=== PATIENT | male | born 1980 | race Caucasian/White ===

== ENCOUNTER → 2020-01-06 | Outpatient (CLI) | payer OTHER ==
[~2020-01-06] MED LIST: AUGMENTIN 875875 M1 PO; COUMADIN 5 MG TA5 M1 PO; LOVENOX SQ; MULTIPLE VITAM1 EAC3 PO; NOHOMEMEDICATIONS; VICODIN PO; ZOSYN 4.5 GRAM4.5 GM IV; ZYRTEC PO
== END ==
LOC: M.ULTRA 15:00
DX: N43.3 Hydrocele, unspecified (principal); N50.89 Other specified disorders of the male genital organs; R10.2 Pelvic and perineal pain

== ENCOUNTER → 2020-01-07 | Outpatient (CLI) | payer OTHER | LOC: M.ULTRA 07:55 | DX: N50.819 Testicular pain, unspecified (principal); R10.32 Left lower quadrant pain; N50.89 Other specified disorders of the male genital organs; R10.2 Pelvic and perineal pain ==

== ENCOUNTER 2020-01-27 05:16 | Emergency (ER) | payer OTHER ==
[~2020-01-27] VITALS: Ht 172.7 cm; Wt 94.1 kg
[2020-01-27] MEDS ORDERED: MULTIVITAMINS1 EAC7 PO (05:32)
[2020-01-27 05:56] LABS: URINE BILIRUBIN NEGATIVE (Negative); URINE BLOOD NEGATIVE (Negative); URINE CLARITY CLEAR; URINE COLOR YELLOW; URINE GLUCOSE-RANDOM NEGATIVE (Negative); URINE KETONES NEGATIVE (Negative); URINE LEUKOCYTES-REFLEX NEGATIVE (Negative); URINE NITRITE-REFLEX NEGATIVE (Negative); URINE PROTEIN NEGATIVE (Negative); URINE UROBILINOGEN 0.2 E.U./dl (0.2-1.0)
[2020-01-27 06:13] LABS: ABSOLUTE BASOPHILS 0.1 thou/uL (0.0-0.2); ABSOLUTE EOSINOPHILS 0.2 thou/uL (0.0-0.7); ABSOLUTE LYMPHOCYTES 1.8 thou/uL (0.8-5.3); ABSOLUTE MONOCYTES 0.6 thou/uL (0.0-1.2); ABSOLUTE NEUTROPHILS 3.2 thou/uL (1.6-8.1); BASOPHILS 1.1 %; HEMATOCRIT 50.1 % (42.0-52.0); HEMOGLOBIN 16.9 gm/dL (14.0-18.0); LYMPHOCYTES 31.1 %; MCH 29.5 pg (26.0-34.0); MCHC 33.8 g/dL (28.0-37.0); MCV 87.4 fL (80.0-100.0); MPV 7.5 fl. (7.2-11.1); NUCLEATED RBCS 0 /100WBC; PLATELET COUNT* 258 thou/uL (150-400); POLYS 53.8 %; RBC 5.73 mil/uL (4.50-6.00); RDW-CV 13.2 % (10.5-14.5); WBC 5.9 thou/uL (4.0-11.0)
[2020-01-27 06:31] LABS: CALCIUM 8.4 mg/dL (8.5-10.1); CREATININE 1.2 mg/dL (0.6-1.3); POTASSIUM 4.1 mmol/L (3.5-5.1)
[2020-01-27 06:36] LABS: ALBUMIN 3.8 g/dL (3.4-5.0); TOTAL BILIRUBIN 0.3 mg/dL (<0.1-1.0); TOTAL PROTEIN 7.7 g/dL (6.4-8.2)
[2020-01-27] MEDS ORDERED: ZOFRAN ODT4 MG DISSOLVE (08:06)
[2020-01-27] MEDS ORDERED: BENTYL 20 MG TA20 M1 PO (08:06)
[2020-01-27] MEDS ORDERED: NORCO 5-325 TA1 EAC1 PO (08:06)
[2020-01-27 08:15] VITALS: BP 121/88
== END 2020-01-27 08:16 | disposition home or self-care (01) ==
LOC: M.ERS 05:16
PROVIDERS: Personal Emergency Response Attendant
DX: R10.84 Generalized abdominal pain (principal); R19.7 Diarrhea, unspecified; Z88.8 Allergy status to other drugs, medicaments and biological substances